=== PATIENT | male | born 1945 | race Caucasian/White ===

== ENCOUNTER → 2022-08-18 | Outpatient (CLI) | payer MEDICARE ==
--- NOTE | 2022-08-19 07:14 | CT ---
EXAMINATION TYPE: CT abdomen pelvis w con DATE OF EXAM: 08/18/2022 COMPARISON: None. HISTORY: HEMATURIA, UNSPECIFIED CT DLP: 3098.2 mGycm, Automated Exposure Control for Dose Reduction was Utilized. CONTRAST: CT scan of the abdomen and pelvis is performed with oral and with IV Contrast, patient injected with 70ML mL of Isovue 300. FINDINGS: LUNG BASES: Calcifications in level of the mitral valve. There is coronary artery calcification and/o r stent in the mid to distal LAD. LIVER/GB: Several small round calcified gallstones. No biliary dilatation. PANCREAS: No significant abnormality is seen. SPLEEN: Small splenule in the splenic hilum. ADRENALS: No significant abnormality is seen. KIDNEYS: Asymmetric diminished size and cortical thinning of the left kidney versus right kidney. The re is symmetric cortical medullary uptake and excretion without hydronephrosis seen bilaterally. Ther e are central parapelvic cysts bilaterally being larger in size on the right. They are slightly more ill-defined with fat stranding on the left. There is additional 1.7 cm thin-walled cyst posteriorly m id pole level left kidney series 5 image 37. No hydroureter. No intraluminal calculus or suspicious m ass in the bladder. BOWEL: Small to moderate-sized hiatal hernia. There is gastric fundal diverticulum measuring 5.2 x 2. 8 cm containing air-contrast level series 3 image 19. Contrast has passed through rest of stomach. Co ntrast reaches level of the cecum. There is no suspicious small or large bowel dilatation. Few divert icula in the sigmoid colon are present. No CT evidence for acute diverticulitis. PROSTATE/SEMINAL VESICLES: No gross abnormality seen. LYMPH NODES: No greater than 1cm abdominal or pelvic lymph nodes are appreciated. OSSEOUS STRUCTURES: Moderate axial joint space loss in both hips. Slight grade 1 anterolisthesis L3 o n L4 and L4 on L5. Some bridging osteophytes in the thoracic spine are present. Sacralized left L5 se gment is seen. Scoliotic curvature centered near the lumbosacral junction noted. Prominent facet arth ropathy in the mid to lower lumbar spine. Lower lumbar spine posterior decompression changes noted. OTHER: Small fat-containing left inguinal hernia. Mild calcified plaque of the aorta extends into bra prh vessels. IMPRESSION: There is [id number]-[id number] central fat stranding in both kidneys left greater than right r aising concern for possible infection an one must consider hemorrhagic infection in patient with deepika turia. Correlate clinically. Consider follow-up imaging after treatment if symptoms persist.
== END | disposition home or self-care (01) ==
LOC: RADCTMAIN 14:46
PROVIDERS: ATTEND Internal Medicine
DX: R31.9 Hematuria, unspecified (principal)
CPT/HCPCS: 82565; 84520; 74177; 36415; Q9967